=== PATIENT | female | born 1930 | race Caucasian/White ===

== ENCOUNTER 2017-11-07 21:48 | Inpatient (IN) | payer MEDICARE, OTHER ==
[~2017-11-07] VITALS: Ht 152.4 cm; Wt 59.4 kg
--- NOTE | 2017-11-07 22:04 | NUR ---
Dr. العراقي at bedside for MSE.
--- NOTE | 2017-11-07 22:26 | NUR ---
Xray at bedside.
--- NOTE | 2017-11-07 22:30 | NUR ---
Pt out of ER for CT.
[2017-11-07] MEDS ORDERED: MECL12.582 PO (22:33)
[2017-11-07] MEDS ORDERED: LOSA50TA21 PO (22:33)
[2017-11-07] MEDS ORDERED: CLOP75TA15 PO (22:33)
[2017-11-07] MEDS ORDERED: LANS30CA54 PO (22:33)
[2017-11-07] MEDS ORDERED: LEVO25TA9 PO (22:33)
[2017-11-07] MEDS ORDERED: CLIN150C16 PO (22:33)
[2017-11-07] MEDS ORDERED: MELO-107 PO (22:33)
[2017-11-07] MEDS ORDERED: PREG75CA PO (22:33)
[2017-11-07 22:38] LABS: CARBON DIOXIDE 30 mmol/L (21-32); CHLORIDE 104 mmol/L (98-107); CREATININE 1.1 mg/dL (0.6-1.3); GLUCOSE 111 mg/dL (74-106); POTASSIUM 4.7 mmol/L (3.5-5.1); UREA NITROGEN, BLOOD 16 mg/dL (7-18)
--- NOTE | 2017-11-07 22:43 | NUR ---
Pt back to ER from CT.
[2017-11-07 22:47] LABS: BASOPHILS # (AUTO) 0.1 K/uL (0.0-8.0); BASOPHILS % (AUTO) 0.7 % (0.0-2.0); EOSINOPHILS # (AUTO) 0.1 K/uL (0.0-0.7); EOSINOPHILS % (AUTO) 0.9 % (0.0-7.0); HEMATOCRIT 36.1 % (31.2-41.9); HEMOGLOBIN 12.3 g/dL (10.9-14.3); LYMPHOCYTES # (AUTO) 2.6 K/uL (20.0-40.0); LYMPHOCYTES % (AUTO) 34.2 % (20.5-51.5); MEAN CORPUSCULAR HEMOGLOBIN 30.6 uug (24.7-32.8); MEAN CORPUSCULAR HGB CONC 34 g/dL (32.3-35.6); MEAN CORPUSCULAR VOLUME 90.1 fL (75.5-95.3); MONOCYTES # (AUTO) 0.4 K/uL (2.0-10.0); MONOCYTES % (AUTO) 5.7 % (0.0-11.0); NEUTROPHILS # (AUTO) 4.5 K/uL (1.8-8.9); NEUTROPHILS % (AUTO) 58.5 % (38.5-71.5); PLATELET COUNT (AUTO) 231 K/uL (179-408); WHITE BLOOD COUNT (AUTO) 7.7 K/uL (3.8-11.8)
--- NOTE | 2017-11-07 23:54 | NUR ---
Dr. العراقي on panel call with Nicole Mancini NP.
[2017-11-08] VITALS (7 sets, daily range): BP systolic 99–166; BP diastolic 45–69
--- NOTE | 2017-11-08 00:20 | NUR ---
Passed report to Leydi MYERS Tele.
--- NOTE | 2017-11-08 01:15 | NUR ---
Received patient from ER via wheelchair. A/O x 3 but mostly Farsi speaking. Able to make needs known with little Bolivian. Ushered patient safely to bed. TELE monitor leads applied. Belongings list done. Head to toe assessment done. No signs of skin breakdown. Patient is able to ambulate with assistance. Safety initiated. Call light within reach. Enforced to use the call button when in need of assistance. Bed alarm on. Will continue to monitor.
[2017-11-08] MEDS ORDERED: HYDROCODONE/APAP 5-325MG TABLET PO PRN (01:30)
[2017-11-08] MEDS ORDERED: ZOLPIDEM 5 MG TABLET PO PRN (01:30)
[2017-11-08] MEDS ORDERED: ONDANSETRON 4 MG/2 ML VIAL IV PRN (01:30)
[2017-11-08] MEDS ORDERED: MAGNESIUM HYDROXIDE 30 ML LIQUID UDC PO PRN (01:30)
[2017-11-08] MEDS ORDERED: ENOXAPARIN SODIUM 40 MG/0.4 ML DISP.SYRIN SQ ONE (02:30)
[2017-11-08] MEDS: ACETAMINOPHEN 325 MG TABLET PO PRN ×2 (02:31→20:57)
[2017-11-08] MEDS: IV NS 1000 ML 1,000 ML IV PRN ×2 (02:32→18:37)
--- NOTE | 2017-11-08 04:00 | NUR ---
Refused blood draw. Wish for a later draw time. Informed animal husbandry worker. Will closely monitor.
--- NOTE | 2017-11-08 05:31 | NUR ---
Patient slept remainder of shift. No acute distress noted. Patient c/o headaches. Med given, stated relief. TELE SB with 11 beats of Vtach. IVF infusing on the right hand. OK urine output. Vital signs stable. Safety and comfort measures maintained t/o shift. All meds given as ordered. All needs met. Bed alarm on. Bed in low and locked position. Room is kept clutter free.
[2017-11-08] MEDS ORDERED: hydrALAZINE HCL 20 MG/1 ML VIAL IV PRN ×3 (06:00→08:00)
--- NOTE | 2017-11-08 06:15 | NUR ---
B/P is elevated. MD aware. New orders to execute. Will continue to monitor.
--- NOTE | 2017-11-08 06:54 | NUR ---
Latest BP is 136/62 HR 73 after Hydralazine given. Will closely monitor.
--- NOTE | 2017-11-08 08:00 | NUR ---
PATIENT NOTED TO HAVE ORTHOSTATIC BP, STILL C/O DIZZINESS ON AMBULATION. FALL PRECAUTION OBSERVED
[2017-11-08] MEDS ORDERED: MECLIZINE HCL 12.5 MG TABLET PO PRN (10:30)
[2017-11-08 11:26] LABS: BASOPHILS % (AUTO) 0.9 % (0.0-2.0); EOSINOPHILS % (AUTO) 0.6 % (0.0-7.0); HEMATOCRIT 39.9 % (31.2-41.9); HEMOGLOBIN 13.7 g/dL (10.9-14.3); LYMPHOCYTES # (AUTO) 1.7 K/uL (20.0-40.0); LYMPHOCYTES % (AUTO) 28.7 % (20.5-51.5); MEAN CORPUSCULAR HEMOGLOBIN 30.8 uug (24.7-32.8); MEAN CORPUSCULAR HGB CONC 34 g/dL (32.3-35.6); MONOCYTES # (AUTO) 0.3 K/uL (2.0-10.0); MONOCYTES % (AUTO) 5.8 % (0.0-11.0); NEUTROPHILS # (AUTO) 3.7 K/uL (1.8-8.9); PLATELET COUNT (AUTO) 237 K/uL (179-408); RED BLOOD CELL COUNT(AUTO) 4.43 MIL/uL (3.63-4.92); WHITE BLOOD COUNT (AUTO) 5.8 K/uL (3.8-11.8)
[2017-11-08 11:39] LABS: ALANINE AMINOTRANSFERASE 16 U/L (14-59); ALKALINE PHOSPHATASE 84 U/L (50-136); ASPARTATE AMINOTRANSFERASE 11 U/L (15-37); BILIRUBIN,TOTAL 0.3 mg/dL (0.2-1.0); CARBON DIOXIDE 29 mmol/L (21-32); CHLORIDE 106 mmol/L (98-107); CREATININE 0.9 mg/dL (0.6-1.3); GLUCOSE 108 mg/dL (74-106); MAGNESIUM 2.2 mg/dL (1.8-2.4); POTASSIUM 4.1 mmol/L (3.5-5.1); TOTAL PROTEIN, SERUM 6.6 g/dL (6.4-8.2); UREA NITROGEN, BLOOD 13 mg/dL (7-18)
[2017-11-08 11:50] LABS: THYROID STIMULATING HORMONE 3.519 mIU/mL (0.358-3.740)
--- NOTE | 2017-11-08 12:00 | NUR ---
SEEN BY DR LEVIN SEE NOTES. SR ON MONITOR. STARTED PHYSICAL THERAPY SEE NOTES
[2017-11-08] MEDS ORDERED: CLINDAMYCIN HCL 150 MG CAPSULE PO SCH (13:00)
[2017-11-08 15:56] LABS: *BILIRUBIN,URIN NEGATIVE (NEGATIVE); *BLOOD, URINE NEGATIVE (NEGATIVE); *COLOR,URINE YELLOW (YELLOW); *KETONES,URINE NEGATIVE (NEGATIVE); *PROTEIN,URINE NEGATIVE (NEGATIVE); *UROBILINOGEN,URINE 0.2 E.U./dl (NORMAL); LEUKOCYTE ESTERASE ,URINE NEGATIVE (NEGATIVE); NITRITE, URINE NEGATIVE (NEGATIVE); PH,URINE 7.5 (5.0-8.0); UGLUCOSE NEGATIVE (NEGATIVE)
[2017-11-08 16:58] LABS: *CLARITY,URINE HAZY (CLEAR)
[2017-11-08 17:00] LABS: BACTERIA,URINE FEW /HPF (NONE SEEN); MUCUS,URINE FEW /LPF (0-FEW); RBC,URINE 0-3 /HPF (0-3); SQUAMOUS EPITHELIAL CELL,UR MANY /HPF (NONE SEEN)
--- NOTE | 2017-11-08 18:01 | NUR ---
seen by dr johns changed patient status to med/surg. continue wot monitor dizzy status
[2017-11-08] MEDS ORDERED: ENOXAPARIN SODIUM 40 MG/0.4 ML DISP.SYRIN SQ SCH (21:00)
[2017-11-09 04:00] VITALS: BP 128/61
--- NOTE | 2017-11-09 05:41 | NUR ---
Patient pulled out her IV line and refused to have it reinserted after multiple attemps. Patient also refused to have labs drawn this morning. Will endorse to AM nurse to attempt.
[2017-11-09] MEDS ORDERED: LEVOTHYROXINE SODIUM 25 MCG TABLET PO SCH (07:00)
--- NOTE | 2017-11-09 07:30 | NUR ---
RECEIVED PATIENT ON BED AWAKE, A AND O X 3, NO ACUTE DISTRESS NOTED. FARSI SPEAKING BUT CAN UNDERSTAND SOME DOMINICAN ON FALL PRECAUTION DUE TO DIZZINESS AND HX OF FALLS. PER ABRAHAM MYERS PATIENT PULLED OUT IV AND REFUSED TO REINSERT. COMFORT MEASURES PROVIDED. CALL LIGHT WITHIN REACH. WILL CONTINUE TOP MONITOR CLOSELY.
[2017-11-09] MEDS: ACETAMINOPHEN 325 MG TABLET PO PRN (08:39)
[2017-11-09] MEDS ORDERED: ENOXAPARIN SODIUM 30 MG/0.3 ML DISP.SYRIN SUBCUT SCH (09:00)
[2017-11-09] MEDS ORDERED: CLOPIDOGREL 75 MG TABLET PO SCH (09:00)
--- NOTE | 2017-11-09 09:00 | NUR ---
REFUSED AM LABS AGAIN. WILLC ONTINUE TO MONITOR.
[2017-11-09 09:30] VITALS: BP 166/53
[2017-11-09 10:59] VITALS: BP 172/63
[2017-11-09] MEDS ORDERED: hydrALAZINE HCL 25 MG TABLET PO PRN (11:15)
[2017-11-09 11:33] VITALS: BP 131/62
[2017-11-09] MEDS ORDERED: MECL12.582 PO (13:31)
--- NOTE | 2017-11-09 14:30 | NUR ---
PATIENT DISCHARGED IN STABLE CONDITION LEFT HOSPITAL VIA TAXI. DISCHARGE PAPERS AND INSTRUCTIONS EXPLAINED AND GIVEN TO PATIENT. SHE REFUSED MED EDUCATION FROM PHARMACIST. BELONGINGS LIST COMPLETED AND SIGNED. ID BAND REMOVED.
== END 2017-11-09 14:30 | disposition home health service (06) | DRG 312 ==
LOC: ER 21:51 → TELE 11-08 00:20 → MED 11-08 15:55
PROVIDERS: ADMIT Nurse Practitioner Acute Care; ATTEND Nurse Practitioner Acute Care
DX: I95.1 Orthostatic hypotension (principal); I50.32 Chronic diastolic (congestive) heart failure; I47.1 Supraventricular tachycardia; I11.0 Hypertensive heart disease with heart failure; E78.5 Hyperlipidemia, unspecified; E03.9 Hypothyroidism, unspecified; M19.90 Unspecified osteoarthritis, unspecified site; I70.0 Atherosclerosis of aorta; I67.2 Cerebral atherosclerosis; Z79.02 Long term (current) use of antithrombotics/antiplatelets; Z79.899 Other long term (current) drug therapy; E88.09 Other disorders of plasma-protein metabolism, not elsewhere classified; R73.9 Hyperglycemia, unspecified
CPT/HCPCS: 36415; 70030-TC; 70450; 71045; 83735; 84100; 84443; 85025; 85730; 87086; 93005; 93307; A4663; J0360; J1650; J7030

== ENCOUNTER 2018-02-03 22:24 | Inpatient (IN) | payer MEDICARE, OTHER ==
[~2018-02-03] VITALS: Ht 152.4 cm; Wt 61.7 kg
[~2018-02-03 22:24] MED LIST: CLOP75TA15 PO; LANS30CA54 PO; LEVO25TA9 PO; LOSA50TA21 PO; MECL12.582 PO
--- NOTE | 2018-02-03 22:35 | NUR ---
Dr. garcia at bedside for MSE.
--- NOTE | 2018-02-03 22:43 | NUR ---
Xray at bedside.
[2018-02-03 23:13] LABS: BASOPHILS # (AUTO) 0.1 K/uL (0.0-8.0); BASOPHILS % (AUTO) 0.7 % (0.0-2.0); EOSINOPHILS # (AUTO) 0.1 K/uL (0.0-0.7); EOSINOPHILS % (AUTO) 0.7 % (0.0-7.0); HEMATOCRIT 38.4 % (31.2-41.9); HEMOGLOBIN 13.2 g/dL (10.9-14.3); LYMPHOCYTES # (AUTO) 2.4 K/uL (20.0-40.0); LYMPHOCYTES % (AUTO) 31.6 % (20.5-51.5); MEAN CORPUSCULAR HEMOGLOBIN 30.3 uug (24.7-32.8); MEAN CORPUSCULAR HGB CONC 34 g/dL (32.3-35.6); MEAN CORPUSCULAR VOLUME 88.3 fL (75.5-95.3); MONOCYTES # (AUTO) 0.4 K/uL (2.0-10.0); MONOCYTES % (AUTO) 5.1 % (0.0-11.0); NEUTROPHILS # (AUTO) 4.7 K/uL (1.8-8.9); NEUTROPHILS % (AUTO) 61.9 % (38.5-71.5); PLATELET COUNT (AUTO) 209 K/uL (179-408); RED BLOOD CELL COUNT(AUTO) 4.35 MIL/uL (3.63-4.92); WHITE BLOOD COUNT (AUTO) 7.6 K/uL (3.8-11.8)
--- NOTE | 2018-02-03 23:13 | NUR ---
Pt out of ER for CT.
[2018-02-03 23:16] LABS: CARBON DIOXIDE 27 mmol/L (21-32); CHLORIDE 106 mmol/L (98-107); CREATININE 1.1 mg/dL (0.6-1.3); GLUCOSE 108 mg/dL (74-106); POTASSIUM 3.7 mmol/L (3.5-5.1); UREA NITROGEN, BLOOD 15 mg/dL (7-18)
--- NOTE | 2018-02-03 23:25 | NUR ---
Pt back to ER from CT.
[2018-02-03 23:28] LABS: ALANINE AMINOTRANSFERASE 21 U/L (14-59); ALKALINE PHOSPHATASE 92 U/L (50-136); ASPARTATE AMINOTRANSFERASE 15 U/L (15-37); BILIRUBIN,DIRECT 0.1 mg/dL (0.0-0.2); BILIRUBIN,TOTAL 0.3 mg/dL (0.2-1.0); TOTAL PROTEIN, SERUM 7.3 g/dL (6.4-8.2)
[2018-02-04] VITALS (7 sets, daily range): BP systolic 122–184; BP diastolic 61–94
--- NOTE | 2018-02-04 00:10 | NUR ---
Dr. Pro on panel call with Dr. Hoyt.
--- NOTE | 2018-02-04 00:29 | NUR ---
Report given to Will health occupations teacher.
[2018-02-04] MEDS ORDERED: ONDANSETRON 4 MG/2 ML VIAL IV PRN (00:30)
[2018-02-04] MEDS ORDERED: Z GUARD REMEDY PASTE 57 GM TUBE TOP PRN (00:30)
[2018-02-04] MEDS ORDERED: MAGNESIUM HYDROXIDE 30 ML LIQUID UDC PO PRN (00:30)
[2018-02-04] MEDS ORDERED: HYDROCODONE/APAP 5-325MG TABLET PO PRN (00:30)
[2018-02-04] MEDS ORDERED: MECLIZINE HCL 12.5 MG TABLET PO PRN (00:30)
[2018-02-04] MEDS ORDERED: ACETAMINOPHEN ES 500 MG TABLET ONE (00:37)
[2018-02-04] MEDS ORDERED: ACETAMINOPHEN 325 MG TABLET PO ONE (00:45)
--- NOTE | 2018-02-04 01:00 | NUR ---
ADMITTED PATIENT IN TELE UNIT UNDER THE CARE OF DR. BLACK, BELONGING LIST DONE.
[2018-02-04] MEDS: hydrALAZINE HCL 25 MG TABLET PO SCH ×4 (01:12→16:54)
--- NOTE | 2018-02-04 01:12 | NUR ---
PATIENT WITH ELEVATED BP 188/78 DR BLACK WAS AWARE, GIVEN HYDRALAZINE 25MG PO ORDERED, PATIENT ALERT ORIENTED NO DIZZINESS, WITH MILD HEADACHES, TYLENOL GIVEN VIA ER NURSE, NO S/S OF DISTRESS, CONT TO MONITOR BP, TELE READING SINUS RHYTHM AT THIS TIME. CONT TO MONITOR. CHARGE NURSE AWARE.
--- NOTE | 2018-02-04 02:30 | NUR ---
RECHECK BP. BP TRENDING DOWN SLOWLY, NO COMPLAIN OF HEADACHES AT THIS TIME. BP 184/74, PATIENT HAS NO VOMITTING, NO DIZZINESS, ASYMPTOMATIC, CONT TO MONITOR. CALL LIGHT WITHIN REACH. RHYTHM NORMAL SINUS AT THIS TIME.
--- NOTE | 2018-02-04 04:00 | NUR ---
PATIENT ALERT ORIENTED, NO SOB NO CHEST PAIN NOTED, NORMAL SINUS RHYTHM AT THIS TIME. NO DIZZINESS, NO HEADACHES, RECHECK BP 156/ 64, HR 62, NO PAIN. ASSISTED WITH TOILETING, CALL LIGHT WITHIN REACH.
[2018-02-04] MEDS: LEVOTHYROXINE SODIUM 25 MCG TABLET PO SCH (06:00)
[2018-02-04] MEDS: ACETAMINOPHEN 325 MG TABLET PO PRN ×2 (06:00→13:31)
[2018-02-04 06:42] LABS: ALANINE AMINOTRANSFERASE 18 U/L (14-59); ALKALINE PHOSPHATASE 81 U/L (50-136); ASPARTATE AMINOTRANSFERASE 16 U/L (15-37); BILIRUBIN,TOTAL 0.5 mg/dL (0.2-1.0); CARBON DIOXIDE 26 mmol/L (21-32); CHLORIDE 107 mmol/L (98-107); CREATININE 0.9 mg/dL (0.6-1.3); GLUCOSE 99 mg/dL (74-106); PHOSPHOROUS 3.3 mg/dL (2.5-4.9); POTASSIUM 3.8 mmol/L (3.5-5.1); TOTAL PROTEIN, SERUM 6.4 g/dL (6.4-8.2); UREA NITROGEN, BLOOD 12 mg/dL (7-18)
--- NOTE | 2018-02-04 06:53 | NUR ---
PATIENT AWAKE ALERT, NO SOB NO CHEST PAIN, RHYTHM SINUS RHYTHM, COMPLAIN OF MILD HEADACHES MEDICATED WITH TYLENOL WITH HELP, BP TREND DOWN TO 122/62, HR 65, NO DIZZINESS, NO NAUSEA NO VOMITING NOTED, CONT TO MONITOR.
[2018-02-04 06:55] LABS: BASOPHILS % (AUTO) 0.6 % (0.0-2.0); EOSINOPHILS # (AUTO) 0.1 K/uL (0.0-0.7); EOSINOPHILS % (AUTO) 1.3 % (0.0-7.0); HEMATOCRIT 36.5 % (31.2-41.9); HEMOGLOBIN 12.3 g/dL (10.9-14.3); LYMPHOCYTES # (AUTO) 2.5 K/uL (20.0-40.0); LYMPHOCYTES % (AUTO) 35.2 % (20.5-51.5); MEAN CORPUSCULAR HEMOGLOBIN 30.3 uug (24.7-32.8); MEAN CORPUSCULAR HGB CONC 34 g/dL (32.3-35.6); MEAN CORPUSCULAR VOLUME 89.6 fL (75.5-95.3); MONOCYTES # (AUTO) 0.4 K/uL (2.0-10.0); MONOCYTES % (AUTO) 5.3 % (0.0-11.0); NEUTROPHILS % (AUTO) 57.6 % (38.5-71.5); PLATELET COUNT (AUTO) 187 K/uL (179-408); RED BLOOD CELL COUNT(AUTO) 4.07 MIL/uL (3.63-4.92)
[2018-02-04 07:38] LABS: THYROID STIMULATING HORMONE 5.676 mIU/mL (0.358-3.740)
--- NOTE | 2018-02-04 08:00 | NUR ---
AWAKE COOPERATE WELL NO SOB OR PAIN EAT BREAKFAST WELL PO FLD ENC NANETTE N MOD AMT ON FALL PRECAUTION CALL BRICENO IN REACH
[2018-02-04] MEDS: PANTOPRAZOLE SODIUM 40 MG TABLET.DR PO SCH (08:08)
[2018-02-04] MEDS: CLOPIDOGREL 75 MG TABLET PO SCH (08:09)
[2018-02-04] MEDS: LOSARTAN POTASSIUM 50 MG TABLET PO SCH (08:10)
[2018-02-04] MEDS ORDERED: Medication Not On Formulary EA (Lansoprazole (Prevacid) 30 MG) PO SCH (09:00)
--- NOTE | 2018-02-04 11:00 | NUR ---
Yoel MCKEON SEEN PATIENT AND LAB RESULT AND NEW ORDER IN CHART ORTHOSATIC BP CHECK AND RECORD ORDER
[2018-02-04] MEDS ORDERED: HYDROCHLOROTHIAZIDE 25 MG TABLET PO SCH (11:30)
[2018-02-04] MEDS: IV NS 1000 ML 1,000 ML IV PRN (14:24)
--- NOTE | 2018-02-04 16:30 | NUR ---
ASSIST OOB UP IN CHAIR DOING WELL NO H/A OR DIZZINESS AT THIS TIME
--- NOTE | 2018-02-04 17:00 | NUR ---
STABLE TELE SR 68 AND BP WAS IMPROVING KEEP MONITORING Q 4HR
--- NOTE | 2018-02-04 17:30 | NUR ---
STABLE HEMODYNAMIC STATUS NO ACUTE DISTRESS ,PAIN AND DIZZINESS UNDER CONTROL SAFETY MEASURE PROVIDED CALL LIGHT IN REACH
[2018-02-04 18:35] LABS: *BILIRUBIN,URIN NEGATIVE (NEGATIVE); *BLOOD, URINE NEGATIVE (NEGATIVE); *CLARITY,URINE CLEAR (CLEAR); *COLOR,URINE LIGHT YELLOW (YELLOW); *KETONES,URINE NEGATIVE (NEGATIVE); *PROTEIN,URINE NEGATIVE (NEGATIVE); *UROBILINOGEN,URINE 0.2 E.U./dl (NORMAL); LEUKOCYTE ESTERASE ,URINE 3+ (NEGATIVE); NITRITE, URINE NEGATIVE (NEGATIVE); UGLUCOSE NEGATIVE (NEGATIVE)
[2018-02-04 18:51] LABS: RBC,URINE 0-3 /HPF (0-3); SQUAMOUS EPITHELIAL CELL,UR FEW /HPF (NONE SEEN)
[2018-02-04 18:52] LABS: BACTERIA,URINE MANY /HPF (NONE SEEN)
--- NOTE | 2018-02-04 20:30 | NUR ---
Pt observed to be in bed, alert and oriented x 4 with family at bedside, in no acute distress. Patient and patient's family made aware of plan of care. BP noted to be elevated at 167/66. Addis BUSINESS MACHINES TEACHER made aware and received orders to administer Norvasc 2.5 mg PO now. Tele monitor sinus rhythm. Safe environment implemented. Call light within reach.
[2018-02-04] MEDS ORDERED: AMLODIPINE 2.5 MG TABLET PO ONE (21:00)
[2018-02-05 00:12] VITALS: BP 144/66
[2018-02-05] MEDS: IV NS 1000 ML 1,000 ML IV PRN (05:44)
[2018-02-05] MEDS: hydrALAZINE HCL 25 MG TABLET PO SCH ×3 (05:45→21:25)
[2018-02-05] MEDS: PANTOPRAZOLE SODIUM 40 MG TABLET.DR PO SCH (06:18)
[2018-02-05] MEDS: LEVOTHYROXINE SODIUM 25 MCG TABLET PO SCH (06:18)
[2018-02-05 06:19] VITALS: BP 176/50
[2018-02-05 06:55] VITALS: BP 144/67
--- NOTE | 2018-02-05 06:55 | NUR ---
Pt stable at this time. No s/s of acute distress noted. Safe environment implemented.
[2018-02-05 07:33] LABS: BASOPHILS % (AUTO) 0.8 % (0.0-2.0); EOSINOPHILS # (AUTO) 0.1 K/uL (0.0-0.7); EOSINOPHILS % (AUTO) 2.4 % (0.0-7.0); LYMPHOCYTES # (AUTO) 1.5 K/uL (20.0-40.0); LYMPHOCYTES % (AUTO) 26.7 % (20.5-51.5); MEAN CORPUSCULAR HEMOGLOBIN 30.3 uug (24.7-32.8); MEAN CORPUSCULAR HGB CONC 34 g/dL (32.3-35.6); MEAN CORPUSCULAR VOLUME 90.3 fL (75.5-95.3); MONOCYTES # (AUTO) 0.3 K/uL (2.0-10.0); MONOCYTES % (AUTO) 5.5 % (0.0-11.0); NEUTROPHILS # (AUTO) 3.7 K/uL (1.8-8.9); NEUTROPHILS % (AUTO) 64.6 % (38.5-71.5); PLATELET COUNT (AUTO) 184 K/uL (179-408); RED BLOOD CELL COUNT(AUTO) 4.47 MIL/uL (3.63-4.92); WHITE BLOOD COUNT (AUTO) 5.8 K/uL (3.8-11.8)
[2018-02-05 07:45] LABS: ALANINE AMINOTRANSFERASE 18 U/L (14-59); ALKALINE PHOSPHATASE 74 U/L (50-136); ASPARTATE AMINOTRANSFERASE 18 U/L (15-37); BILIRUBIN,TOTAL 0.5 mg/dL (0.2-1.0); CARBON DIOXIDE 27 mmol/L (21-32); CHLORIDE 106 mmol/L (98-107); CHOLESTEROL 203 mg/dL (<200); GLUCOSE 91 mg/dL (74-106); HDL CHOLESTEROL 67 mg/dL (40-60); PHOSPHOROUS 3.5 mg/dL (2.5-4.9); POTASSIUM 3.9 mmol/L (3.5-5.1); TOTAL PROTEIN, SERUM 6.4 g/dL (6.4-8.2); TRIGLYCERIDES 75 MG/DL (30-150); UREA NITROGEN, BLOOD 14 mg/dL (7-18)
[2018-02-05 07:48] LABS: HEMATOCRIT 40.4 % (31.2-41.9); HEMOGLOBIN 13.6 g/dL (10.9-14.3)
--- NOTE | 2018-02-05 08:00 | NUR ---
AWAKE ALERT COOPERATE WELL NO SOB OR H/A OR PAIN AT THIS TIME EAT BREAKFAST WELL STATE FEEL BETTER AND WANT TO GO HOME TODAY RESTING WELL WITH CALL BRICENO IN REACH
[2018-02-05] MEDS: CLOPIDOGREL 75 MG TABLET PO SCH (08:30)
[2018-02-05] MEDS: LOSARTAN POTASSIUM 50 MG TABLET PO SCH (08:31)
[2018-02-05] MEDS ORDERED: AMLODIPINE 2.5 MG TABLET PO SCH (09:00)
--- NOTE | 2018-02-05 10:00 | NUR ---
Odette SALAS MANAGER TRANSFUSION WAS INFORM OF UA RESULT AND NEW ORDER IN CHART
[2018-02-05] MEDS ORDERED: CEFTRIAXONE 1 G VIAL IM SCH (10:45)
[2018-02-05] MEDS ORDERED: FUROSEMIDE 40 MG/4 ML VIAL IV ONE (11:00)
[2018-02-05 11:23] VITALS: BP 115/67
[2018-02-05] MEDS: CEFTRIAXONE 1 G in IV DEXTROSE 5% 50 ML IV SCH (11:33)
[2018-02-05 15:03] VITALS: BP 118/64
--- NOTE | 2018-02-05 17:30 | NUR ---
STABLE CONDITION NO ACUTE DISTRESS ,PAIN UNDER CONTROL SAFETY MEASURE PROVIDED CALL LIGHT IN REACH
--- NOTE | 2018-02-05 18:00 | NUR ---
REFUSED TO RESTART IV AT THIS TIME ,WILL ASK MINT WAFER DEPOSITOR TO DO IT LATER .
--- NOTE | 2018-02-05 20:00 | NUR ---
ROUNDS MADE PATIENT IN BED AWAKE ,WATCHING TV.DENIES PAIN WHEN ASKED .NO RESPIRATORY DISTRESS ON ROOM AIR .ADVISED TO CALL FOR HELP CALL LIGHT PLACE WITH IN REACH .
[2018-02-05 20:17] VITALS: BP 123/65
--- NOTE | 2018-02-05 20:30 | NUR ---
ASSISTED PATIENT TO THE BATHROOM VOIDED ,ESCORTED BACK TO BED .
[2018-02-05] MEDS ORDERED: ATORVASTATIN 10 MG TABLET PO SCH (21:00)
--- NOTE | 2018-02-05 21:30 | NUR ---
DUE HS MEDIATION GIVEN TOLERATED WITH WATER . NO COMPLAINS MADE , NO S/S/ OF PAIN ,DISTRESS NOTED . PER DAY RN PATIENT REFUSED IVF -HEPLOCK REINSERTION FOR POSSIBLE D/C IN AM . .
--- NOTE | 2018-02-05 22:15 | NUR ---
ROUNDS MADE,PATIENT AWAKE. PER PATIENT SHE IS GOING HOME IN AM .
[2018-02-06 04:00] VITALS: BP 120/61
[2018-02-06] MEDS: hydrALAZINE HCL 25 MG TABLET PO SCH (05:48)
[2018-02-06] MEDS: LEVOTHYROXINE SODIUM 25 MCG TABLET PO SCH (06:06)
[2018-02-06] MEDS: PANTOPRAZOLE SODIUM 40 MG TABLET.DR PO SCH (06:07)
[2018-02-06 07:06] LABS: BASOPHILS % (AUTO) 0.5 % (0.0-2.0); CARBON DIOXIDE 28 mmol/L (21-32); CHLORIDE 104 mmol/L (98-107); CREATININE 1.1 mg/dL (0.6-1.3); EOSINOPHILS # (AUTO) 0.1 K/uL (0.0-0.7); EOSINOPHILS % (AUTO) 1.8 % (0.0-7.0); GLUCOSE 107 mg/dL (74-106); HEMATOCRIT 43.3 % (31.2-41.9); HEMOGLOBIN 14.6 g/dL (10.9-14.3); LYMPHOCYTES # (AUTO) 2.8 K/uL (20.0-40.0); LYMPHOCYTES % (AUTO) 34.6 % (20.5-51.5); MEAN CORPUSCULAR HEMOGLOBIN 30.4 uug (24.7-32.8); MEAN CORPUSCULAR HGB CONC 34 g/dL (32.3-35.6); MONOCYTES # (AUTO) 0.4 K/uL (2.0-10.0); MONOCYTES % (AUTO) 4.9 % (0.0-11.0); NEUTROPHILS # (AUTO) 4.6 K/uL (1.8-8.9); NEUTROPHILS % (AUTO) 58.2 % (38.5-71.5); PLATELET COUNT (AUTO) 222 K/uL (179-408); POTASSIUM 3.8 mmol/L (3.5-5.1); RED BLOOD CELL COUNT(AUTO) 4.81 MIL/uL (3.63-4.92); UREA NITROGEN, BLOOD 21 mg/dL (7-18)
--- NOTE | 2018-02-06 07:20 | NUR ---
RECEIVED PATIENT ON BED AWAKE AAOX4 FARSI SPEAKING, ABLE TO MAKE NEEDS KNOWN. NO ACUTE DISTRESS NOTED. PER SHAHANA RN PATIENT REFUSED TO RESTART IV SITE. VITAL SIGNS WNL. NO COMPLAINT OF PAIN/DISCOMFORT. COMFORT MEASURES PROVIDED. CALL LIGHT WITHIN REACH. WILL CONTINUE TO MONITOR CLOSELY.
[2018-02-06] MEDS: CLOPIDOGREL 75 MG TABLET PO SCH (08:03)
[2018-02-06] MEDS: LOSARTAN POTASSIUM 50 MG TABLET PO SCH (08:04)
[2018-02-06] MEDS ORDERED: ACETAMINOPHEN 325 MG TABLET PO PRN (08:30)
[2018-02-06] MEDS ORDERED: AMLODIPINE 2.5 MG TABLET PO SCH (09:00)
[2018-02-06] MEDS ORDERED: CEPH500C2 PO (10:56)
[2018-02-06] MEDS ORDERED: ATOR10TA PO (10:56)
[2018-02-06] MEDS ORDERED: AMLO5TAB4 PO (10:57)
[2018-02-06 11:05] VITALS: BP 106/87
[2018-02-06] MEDS: CEFTRIAXONE 1 G in IV DEXTROSE 5% 50 ML IV SCH (12:00)
--- NOTE | 2018-02-06 13:48 | NUR ---
PATIENT DISCHARGED IN STABLE CONDITION. DISCHARGE PAPERS AND INSTRUCTIONS GIVEN AND EXPLAINED TO PATIENT, TOGETHER WITH PRESCRIPTION, REFUSED MEDICATION EDUCATION FROM PHARMACIST. PATIENT LEFT HOSPITAL VIA TAXI SELF PAY.
== END 2018-02-06 13:40 | disposition home or self-care (01) | DRG 73 ==
LOC: ER 22:26 → TELE 02-04 00:42 → MED 02-05 13:00
PROVIDERS: ADMIT Internal Medicine; ATTEND Nurse Practitioner Acute Care
DX: G90.8 Other disorders of autonomic nervous system (principal); I50.33 Acute on chronic diastolic (congestive) heart failure; N39.0 Urinary tract infection, site not specified; I16.0 Hypertensive urgency; I67.2 Cerebral atherosclerosis; E03.9 Hypothyroidism, unspecified; E78.5 Hyperlipidemia, unspecified; R73.9 Hyperglycemia, unspecified; M19.90 Unspecified osteoarthritis, unspecified site; E88.09 Other disorders of plasma-protein metabolism, not elsewhere classified; I11.0 Hypertensive heart disease with heart failure
CPT/HCPCS: 36415; 70030-TC; 70450; 71045; 83735; 84100; 84443; 85025; 85730; 93005; 97116; 97530; A4663; A9150; J0696; J1940; J7030; J7060; J8597

== ENCOUNTER 2018-09-28 05:51 | Inpatient (IN) | payer MEDICARE, OTHER ==
[~2018-09-28] VITALS: Ht 152.4 cm; Wt 54.4 kg
[~2018-09-28 05:51] MED LIST changes: +AMLO5TAB4 PO; +ATOR10TA PO; +CEPH500C2 PO; -LOSA50TA21 PO; +LOSA50TA39 PO
[2018-09-28] MEDS ORDERED: ONDANSETRON 4 MG/2 ML VIAL IV ONE (06:00)
[2018-09-28] MEDS ORDERED: IV NORMAL SALINE 500 ML BAG IV ONE (06:00)
[2018-09-28] MEDS ORDERED: ONDANSETRON 4 MG/2 ML VIAL ONE ×2 (06:07→07:39)
--- NOTE | 2018-09-28 06:10 | NUR ---
PATIENT BIB [facility] FROM HOME FOR C/O LEFT HIP PAIN,LEFT SHOULDER PAIN DUE TO MECHANICAL FALL. PATIENT UPON ARRIVAL A/OX3 . HAS BRUISE ON LEFT EYE. PLACED IN ROOM 3A. DENIES LOC
[2018-09-28] MEDS ORDERED: CELE50CA PO (06:11)
[2018-09-28] MEDS ORDERED: VITAMIN D (06:11)
[2018-09-28] MEDS ORDERED: [UNRECOGNIZED DRUG - OTHER] (06:11)
[2018-09-28] MEDS ORDERED: MULTI VITAMINS (06:11)
--- NOTE | 2018-09-28 06:11 | NUR ---
PATIENT DRY HEAVING C/O DIZZINESS. DR NICOLAS AWARE.
[2018-09-28] MEDS ORDERED: MORPHINE SULFATE 4 MG/1 ML DISP.SYRIN IV ONE (06:15)
[2018-09-28] MEDS ORDERED: ONDANSETRON IV *ER 4 MG/2 ML VIAL IV ONE (06:15)
[2018-09-28 06:25] LABS: BASOPHILS % (AUTO) 0.2 % (0.0-2.0); EOSINOPHILS % (AUTO) 0.1 % (0.0-7.0); HEMATOCRIT 38.3 % (31.2-41.9); HEMOGLOBIN 12.7 g/dL (10.9-14.3); LYMPHOCYTES # (AUTO) 2.2 K/uL (20.0-40.0); LYMPHOCYTES % (AUTO) 15.6 % (20.5-51.5); MEAN CORPUSCULAR HEMOGLOBIN 28.5 uug (24.7-32.8); MEAN CORPUSCULAR HGB CONC 33 g/dL (32.3-35.6); MEAN CORPUSCULAR VOLUME 85.7 fL (75.5-95.3); MONOCYTES # (AUTO) 0.6 K/uL (2.0-10.0); NEUTROPHILS # (AUTO) 11.3 K/uL (1.8-8.9); NEUTROPHILS % (AUTO) 80.1 % (38.5-71.5); PLATELET COUNT (AUTO) 289 K/uL (179-408); RED BLOOD CELL COUNT(AUTO) 4.47 MIL/uL (3.63-4.92); WHITE BLOOD COUNT (AUTO) 14.1 K/uL (3.8-11.8)
[2018-09-28] MEDS ORDERED: MORPHINE SULFATE 4 MG/1 ML DISP.SYRIN ONE (06:27)
--- NOTE | 2018-09-28 06:29 | NUR ---
PATIENT OUT OF UNIT FOR CT SCAN VIA GURNY
[2018-09-28 06:49] LABS: CARBON DIOXIDE 27 mmol/L (21-32); CHLORIDE 101 mmol/L (98-107); GLUCOSE 133 mg/dL (74-106); POTASSIUM 3.7 mmol/L (3.5-5.1); UREA NITROGEN, BLOOD 13 mg/dL (7-18)
[2018-09-28 07:03] LABS: ALANINE AMINOTRANSFERASE 19 U/L (14-59); ALKALINE PHOSPHATASE 112 U/L (50-136); ASPARTATE AMINOTRANSFERASE 17 U/L (15-37); BILIRUBIN,DIRECT 0.1 mg/dL (0.0-0.2); BILIRUBIN,TOTAL 0.4 mg/dL (0.2-1.0); TOTAL PROTEIN, SERUM 7.3 g/dL (6.4-8.2)
--- NOTE | 2018-09-28 07:47 | NUR ---
PT REFUSED THE [facility]OLLEY CATH. PT RATHER WALK TO BATH ROOM FOR URINE SAMPLE, WHEN PT IS READY TO URIANRE. PT SON AT [facility]. PT ALERT, AT HER BASE LINE PER PT SON.
--- NOTE | 2018-09-28 07:59 | NUR ---
PT UNABLE TO AMBULATE TO BATHROM DUE TO DIZZINESS.PT AND PT SON REQUESTING THAT THE PT TO BE ADMITTED TO HOSPITAL. NOTIFIED. PT AGREED TO IN AND OUT RADHA MANNING.
[2018-09-28 08:25] LABS: *BILIRUBIN,URIN NEGATIVE (NEGATIVE); *CLARITY,URINE SLIGHTLY CLOUDY (CLEAR); *COLOR,URINE YELLOW (YELLOW); *KETONES,URINE TRACE (NEGATIVE); *UROBILINOGEN,URINE 0.2 E.U./dl (NORMAL); LEUKOCYTE ESTERASE ,URINE TRACE (NEGATIVE); NITRITE, URINE POSITIVE (NEGATIVE); UGLUCOSE NEGATIVE (NEGATIVE)
[2018-09-28 08:28] LABS: *BLOOD, URINE TRACE INTACT (NEGATIVE)
[2018-09-28 08:31] LABS: BACTERIA,URINE MANY /HPF (NONE SEEN); SQUAMOUS EPITHELIAL CELL,UR NONE SEEN /HPF (NONE SEEN)
[2018-09-28 08:32] LABS: RBC,URINE 0-3 /HPF (0-3)
[2018-09-28] MEDS ORDERED: CEFTRIAXONE 1 G VIAL ONE (08:42)
[2018-09-28] MEDS ORDERED: METOCLOPRAMIDE HCL 10 MG/2 ML VIAL ONE (08:42)
[2018-09-28] MEDS ORDERED: METOCLOPRAMIDE HCL 10 MG/2 ML VIAL IV ONE (08:45)
[2018-09-28] MEDS ORDERED: CEFTRIAXONE 1 G in IV DEXTROSE 5% 50 ML IV ONE (08:45)
--- NOTE | 2018-09-28 09:33 | NUR ---
PT TRANSFERED TO FLOOR IN STABLE CONDITION.
--- NOTE | 2018-09-28 09:50 | NUR ---
received from ER awake alert and oriented, speaks Farsi, very little Tajik, routine admission care rendered, initial assessment done, has a bruise on the left periorbital area, safety measures maintained, call light within reach with be alarm on.
[2018-09-28 09:55] VITALS: BP 143/56
[2018-09-28] MEDS ORDERED: Z GUARD REMEDY PASTE 57 GM TUBE TOP PRN (10:00)
[2018-09-28] MEDS ORDERED: ZOLPIDEM 5 MG TABLET PO PRN (10:00)
[2018-09-28] MEDS ORDERED: MAGNESIUM HYDROXIDE 30 ML LIQUID UDC PO PRN (10:00)
[2018-09-28] MEDS ORDERED: ONDANSETRON 4 MG/2 ML VIAL IV PRN (10:00)
[2018-09-28 11:43] VITALS: BP 133/52
--- NOTE | 2018-09-28 12:15 | NUR ---
seen by Dr Mejía
[2018-09-28] MEDS: ACETAMINOPHEN 325 MG TABLET PO PRN (12:27)
--- NOTE | 2018-09-28 12:31 | NUR ---
medicated with Tylenol 650mg po for c/o headache, rima jessie served, moved to rm [id number] per pt's request
[2018-09-28 16:00] VITALS: BP 129/62
[2018-09-28] MEDS: HYDROCODONE/APAP 5-325MG TABLET PO PRN ×2 (16:06→20:26)
--- NOTE | 2018-09-28 16:06 | NUR ---
states headache better but came back- medicated with norco 1 tab po, will monitor closely, oriented x 3, up with assist to commode- voded qs, assited back to bed
--- NOTE | 2018-09-28 16:30 | NUR ---
son Moises here visiting
--- NOTE | 2018-09-28 17:57 | NUR ---
resting in bed with son at bedside, states headache better, call light within reach, all needs attended and met
[2018-09-28 19:42] VITALS: BP 128/53
[2018-09-28] MEDS: ATORVASTATIN 10 MG TABLET PO SCH (20:24)
[2018-09-29] MEDS: HYDROCODONE/APAP 5-325MG TABLET PO PRN ×3 (01:52→22:03)
[2018-09-29 04:35] VITALS: BP 129/54
[2018-09-29] MEDS: LEVOTHYROXINE SODIUM 25 MCG TABLET PO SCH (06:11)
[2018-09-29 06:25] LABS: THYROID STIMULATING HORMONE 8.697 mIU/mL (0.358-3.740)
[2018-09-29 06:27] LABS: BASOPHILS % (AUTO) 0.4 % (0.0-2.0); EOSINOPHILS # (AUTO) 0.1 K/uL (0.0-0.7); HEMATOCRIT 34.4 % (31.2-41.9); HEMOGLOBIN 11.6 g/dL (10.9-14.3); LYMPHOCYTES # (AUTO) 1.6 K/uL (20.0-40.0); LYMPHOCYTES % (AUTO) 23.8 % (20.5-51.5); MEAN CORPUSCULAR HEMOGLOBIN 29.5 uug (24.7-32.8); MEAN CORPUSCULAR HGB CONC 34 g/dL (32.3-35.6); MEAN CORPUSCULAR VOLUME 87.5 fL (75.5-95.3); MONOCYTES # (AUTO) 0.4 K/uL (2.0-10.0); NEUTROPHILS # (AUTO) 4.6 K/uL (1.8-8.9); NEUTROPHILS % (AUTO) 68.8 % (38.5-71.5); PLATELET COUNT (AUTO) 228 K/uL (179-408); RED BLOOD CELL COUNT(AUTO) 3.93 MIL/uL (3.63-4.92); WHITE BLOOD COUNT (AUTO) 6.7 K/uL (3.8-11.8)
[2018-09-29 06:37] LABS: CARBON DIOXIDE 28 mmol/L (21-32); CHLORIDE 104 mmol/L (98-107); CREATININE 0.8 mg/dL (0.6-1.3); MAGNESIUM 2.2 mg/dL (1.8-2.4); PHOSPHOROUS 3.5 mg/dL (2.5-4.9); POTASSIUM 4.6 mmol/L (3.5-5.1); UREA NITROGEN, BLOOD 15 mg/dL (7-18)
--- NOTE | 2018-09-29 06:41 | NUR ---
Patient rested well in between care; c/o pain head and left side medicated accordingly; ice applied; assisted to BSC; needs attended; safety maintained.
[2018-09-29 06:44] LABS: GLUCOSE 97 mg/dL (74-106)
[2018-09-29] MEDS: AMLODIPINE 5 MG TABLET PO SCH (08:01)
[2018-09-29] MEDS: CEFTRIAXONE 1 G in IV DEXTROSE 5% 50 ML IV SCH (08:19)
[2018-09-29] MEDS ORDERED: AMLODIPINE 5 MG TABLET PO SCH (09:00)
[2018-09-29] MEDS ORDERED: CELECOXIB 50 MG PO SCH (09:00)
[2018-09-29 11:01] VITALS: BP 115/51
[2018-09-29 15:18] VITALS: BP 110/75
[2018-09-29 19:00] VITALS: BP 155/64
--- NOTE | 2018-09-29 19:20 | NUR ---
RECEIVED PT AWAKE , ALERT AND ORIENTEDX3. PT SHOWS NO SIGNS OF ACUTE DISTRESS. PT IV INTACT. SAFETY AND COMFORT PROVIDED. WILL CONTINUE TO MONITOR.
[2018-09-29] MEDS: ATORVASTATIN 10 MG TABLET PO SCH (20:22)
--- NOTE | 2018-09-29 20:30 | NUR ---
HANDS OFF REPORT TO HALIMA MYERS. PT SHOWS NO SIGNS FO ACUTE DISTRESS. PT STABLE. SAFETY AND COMFORT PROVIDED.
--- NOTE | 2018-09-29 21:00 | NUR ---
Received patient awake, alert and oriented in bed. No signs of acute distress. No SOB. IV intact and patent. Bruise on left eye noted. Fall precautions in place. Bed alarm on. Safety and comfort measures implemented. Will continue to monitor throughout shift.
[2018-09-29 23:40] VITALS: BP 150/56
[2018-09-30 05:17] VITALS: BP 146/71
--- NOTE | 2018-09-30 06:07 | NUR ---
Patient slept throughout the night. Complained of left arm and left hip pain. PRN [place] administered. Patient verbalized pain relief. Comfort provided at all times. Safety maintained and effective. All needs met. Continue plan of care.
[2018-09-30 07:07] LABS: BASOPHILS % (AUTO) 0.5 % (0.0-2.0); EOSINOPHILS # (AUTO) 0.1 K/uL (0.0-0.7); EOSINOPHILS % (AUTO) 1.8 % (0.0-7.0); HEMOGLOBIN 11.3 g/dL (10.9-14.3); LYMPHOCYTES # (AUTO) 1.8 K/uL (20.0-40.0); LYMPHOCYTES % (AUTO) 27.4 % (20.5-51.5); MEAN CORPUSCULAR HEMOGLOBIN 28.7 uug (24.7-32.8); MEAN CORPUSCULAR HGB CONC 33 g/dL (32.3-35.6); MEAN CORPUSCULAR VOLUME 86.2 fL (75.5-95.3); MONOCYTES # (AUTO) 0.4 K/uL (2.0-10.0); MONOCYTES % (AUTO) 6.6 % (0.0-11.0); NEUTROPHILS # (AUTO) 4.3 K/uL (1.8-8.9); NEUTROPHILS % (AUTO) 63.7 % (38.5-71.5); PLATELET COUNT (AUTO) 223 K/uL (179-408); RED BLOOD CELL COUNT(AUTO) 3.94 MIL/uL (3.63-4.92); WHITE BLOOD COUNT (AUTO) 6.7 K/uL (3.8-11.8)
[2018-09-30 07:25] LABS: CARBON DIOXIDE 30 mmol/L (21-32); CHLORIDE 104 mmol/L (98-107); CREATININE 0.8 mg/dL (0.6-1.3); GLUCOSE 96 mg/dL (74-106); MAGNESIUM 2.2 mg/dL (1.8-2.4); PHOSPHOROUS 3.3 mg/dL (2.5-4.9); POTASSIUM 4.1 mmol/L (3.5-5.1); UREA NITROGEN, BLOOD 17 mg/dL (7-18)
[2018-09-30] MEDS: LEVOTHYROXINE SODIUM 25 MCG TABLET PO SCH (07:25)
[2018-09-30] MEDS: CEFTRIAXONE 1 G in IV DEXTROSE 5% 50 ML IV SCH (07:30)
[2018-09-30] MEDS: AMLODIPINE 5 MG TABLET PO SCH (08:02)
[2018-09-30] MEDS: ACETAMINOPHEN 325 MG TABLET PO PRN ×2 (10:09→19:50)
[2018-09-30 11:56] VITALS: BP 148/67
[2018-09-30] MEDS: HYDROCODONE/APAP 5-325MG TABLET PO PRN (15:24)
[2018-09-30 16:00] VITALS: BP 149/69
--- NOTE | 2018-09-30 19:20 | NUR ---
RECEIVED PT AWAKE, ALERT AND ORIENTEDX3. PT SHOWS NO SIGNS OF ACUTE DISTRESS. PT IV INTACT. SIDERAILS UP AND BED ALARM ON. SAFETY AND COMFORT PROVIDED. WILL CONTINUE TO MONITOR.
[2018-09-30] MEDS: CEphaleXIN 500 MG CAPSULE PO SCH (20:00)
[2018-09-30] MEDS: ATORVASTATIN 10 MG TABLET PO SCH (20:00)
[2018-09-30 20:39] VITALS: BP 140/81
[2018-10-01] MEDS: LEVOTHYROXINE SODIUM 25 MCG TABLET PO SCH (06:01)
--- NOTE | 2018-10-01 06:13 | NUR ---
PT SLEPT THROUGHOUT THE SHIFT. PT SHOWS NO SIGNS OF ACUTE DISTRESS. PRESCRIBED MEDICATION GIVEN AND PT TOLERATED IT WELL. IV INTACT. FALL PRECAUTION OBSERVED. WILL ENDORSE ACCORDINGLY TO INCOMING NURSE FOR CONTINUITY OF CARE.
[2018-10-01 06:32] VITALS: BP 178/78
[2018-10-01 06:34] LABS: BASOPHILS % (AUTO) 0.5 % (0.0-2.0); EOSINOPHILS # (AUTO) 0.1 K/uL (0.0-0.7); EOSINOPHILS % (AUTO) 1.9 % (0.0-7.0); HEMATOCRIT 37.1 % (31.2-41.9); HEMOGLOBIN 12.2 g/dL (10.9-14.3); LYMPHOCYTES # (AUTO) 0.7 K/uL (20.0-40.0); LYMPHOCYTES % (AUTO) 13.1 % (20.5-51.5); MEAN CORPUSCULAR HEMOGLOBIN 28.3 uug (24.7-32.8); MEAN CORPUSCULAR HGB CONC 33 g/dL (32.3-35.6); MEAN CORPUSCULAR VOLUME 86.4 fL (75.5-95.3); MONOCYTES # (AUTO) 0.2 K/uL (2.0-10.0); MONOCYTES % (AUTO) 3.4 % (0.0-11.0); NEUTROPHILS # (AUTO) 4.3 K/uL (1.8-8.9); NEUTROPHILS % (AUTO) 81.1 % (38.5-71.5); PLATELET COUNT (AUTO) 204 K/uL (179-408); RED BLOOD CELL COUNT(AUTO) 4.29 MIL/uL (3.63-4.92); WHITE BLOOD COUNT (AUTO) 5.3 K/uL (3.8-11.8)
[2018-10-01 06:51] LABS: CARBON DIOXIDE 31 mmol/L (21-32); CHLORIDE 103 mmol/L (98-107); CREATININE 0.9 mg/dL (0.6-1.3); GLUCOSE 102 mg/dL (74-106); MAGNESIUM 2.1 mg/dL (1.8-2.4); PHOSPHOROUS 3.2 mg/dL (2.5-4.9); UREA NITROGEN, BLOOD 14 mg/dL (7-18)
[2018-10-01] MEDS: CEphaleXIN 500 MG CAPSULE PO SCH ×2 (08:02→20:10)
[2018-10-01] MEDS: AMLODIPINE 5 MG TABLET PO SCH (08:03)
[2018-10-01 11:48] VITALS: BP 153/66
[2018-10-01] MEDS: ACETAMINOPHEN 325 MG TABLET PO PRN (11:53)
[2018-10-01 15:35] VITALS: BP 144/73
[2018-10-01 19:23] VITALS: BP 140/58
[2018-10-01] MEDS: HYDROCODONE/APAP 5-325MG TABLET PO PRN ×2 (19:38→23:03)
[2018-10-01] MEDS: ATORVASTATIN 10 MG TABLET PO SCH (20:10)
[2018-10-02 03:10] VITALS: BP 147/62
[2018-10-02] MEDS: LEVOTHYROXINE SODIUM 25 MCG TABLET PO SCH (06:11)
[2018-10-02] MEDS: HYDROCODONE/APAP 5-325MG TABLET PO PRN ×3 (06:11→21:20)
--- NOTE | 2018-10-02 06:24 | NUR ---
Patient slept throughout the night. AAOx4. Complained of left shoulder/arm/hip pain of 10/10. PRN [place] administered as needed. No acute distress at this time. No SOB. Comfort provided at all times. Fall risk, safety maintained and effective. All needs met. Call light within reach. Continue plan of care.
[2018-10-02 07:10] LABS: BASOPHILS % (AUTO) 0.8 % (0.0-2.0); EOSINOPHILS # (AUTO) 0.1 K/uL (0.0-0.7); EOSINOPHILS % (AUTO) 3.4 % (0.0-7.0); HEMATOCRIT 34.4 % (31.2-41.9); HEMOGLOBIN 11.5 g/dL (10.9-14.3); LYMPHOCYTES # (AUTO) 0.8 K/uL (20.0-40.0); LYMPHOCYTES % (AUTO) 19.7 % (20.5-51.5); MEAN CORPUSCULAR HEMOGLOBIN 28.6 uug (24.7-32.8); MEAN CORPUSCULAR HGB CONC 33 g/dL (32.3-35.6); MEAN CORPUSCULAR VOLUME 85.7 fL (75.5-95.3); MONOCYTES # (AUTO) 0.3 K/uL (2.0-10.0); MONOCYTES % (AUTO) 7.8 % (0.0-11.0); NEUTROPHILS # (AUTO) 2.8 K/uL (1.8-8.9); NEUTROPHILS % (AUTO) 68.3 % (38.5-71.5); PLATELET COUNT (AUTO) 198 K/uL (179-408); RED BLOOD CELL COUNT(AUTO) 4.02 MIL/uL (3.63-4.92); WHITE BLOOD COUNT (AUTO) 4.1 K/uL (3.8-11.8)
[2018-10-02 08:00] VITALS: BP 137/76
[2018-10-02 08:13] LABS: ALANINE AMINOTRANSFERASE 28 U/L (14-59); ALKALINE PHOSPHATASE 99 U/L (50-136); ASPARTATE AMINOTRANSFERASE 20 U/L (15-37); BILIRUBIN,TOTAL 0.3 mg/dL (0.2-1.0); CARBON DIOXIDE 29 mmol/L (21-32); CHLORIDE 105 mmol/L (98-107); CHOLESTEROL 151 mg/dL (<200); CREATININE 0.8 mg/dL (0.6-1.3); GLUCOSE 97 mg/dL (74-106); HDL CHOLESTEROL 48 mg/dL (40-60); MAGNESIUM 2.1 mg/dL (1.8-2.4); PHOSPHOROUS 3.7 mg/dL (2.5-4.9); POTASSIUM 4.2 mmol/L (3.5-5.1); TOTAL PROTEIN, SERUM 6.3 g/dL (6.4-8.2); TRIGLYCERIDES 85 MG/DL (30-150); UREA NITROGEN, BLOOD 13 mg/dL (7-18)
[2018-10-02] MEDS: CEphaleXIN 500 MG CAPSULE PO SCH ×2 (09:18→21:19)
[2018-10-02] MEDS: AMLODIPINE 5 MG TABLET PO SCH (09:18)
[2018-10-02 11:40] VITALS: BP 126/62
[2018-10-02 16:00] VITALS: BP 137/63
--- NOTE | 2018-10-02 17:07 | NUR ---
Medicated for c/o pain on L shoulder and L lower back with norco. Pt asleep at this time. L eye bruise noted. Out of bed with walker. Poor appetite. Bed low and locked. call light within reached. will continue to monitor.
[2018-10-02] MEDS: ACETAMINOPHEN 325 MG TABLET PO PRN (18:12)
[2018-10-02 19:10] VITALS: BP 146/62
[2018-10-03 03:11] VITALS: BP 146/59
--- NOTE | 2018-10-03 05:54 | NUR ---
Patient slept throughout the night. Verbalized pain in left hip, shoulder and back at bedtime. PRN [place] administered as needed. Safety and comfort maintained at all times. All needs met. Call light within reach.
[2018-10-03] MEDS: LEVOTHYROXINE SODIUM 25 MCG TABLET PO SCH (06:24)
[2018-10-03] MEDS: HYDROCODONE/APAP 5-325MG TABLET PO PRN (06:25)
--- NOTE | 2018-10-03 07:41 | NUR ---
patient sleeping in bed, no acute distress noted
[2018-10-03 08:27] VITALS: BP 153/64
[2018-10-03] MEDS: AMLODIPINE 5 MG TABLET PO SCH (08:27)
[2018-10-03] MEDS: CEphaleXIN 500 MG CAPSULE PO SCH (08:28)
[2018-10-03] MEDS: ACETAMINOPHEN 325 MG TABLET PO PRN (08:35)
--- NOTE | 2018-10-03 11:02 | NUR ---
PATIENT IS ALERT, ORIENTED X4, VERBALLY RESPONSIVE, NO SOB, RESP EVEN NONLABORED,SKIN WARM AND DRY TO TOUCH, NO ACUTE DISTRESS NOTED AT THIS TIME, PATIENT IS BEING DISCHARGED HOME WITH [facility] NAME [facility]. BELONGINGS ACCENTED AND SIGNED. IV AND ID BAND REMOVED, SON STATED THAT HE UNDERSTANDS HER MEDS, HE REFUSED TO TALK TO -PHARMACIST. DISCHARGE INSTRUCTIONS PROVIDED AND SON VERBALIZED UNDERSTANDING OF IT.
== END 2018-10-03 11:50 | disposition home health service (06) | DRG 690 ==
LOC: ER 05:56 → TELE3 09:21 → MEDSURG3 10:00
PROVIDERS: ADMIT Student in an Organized Health Care Education/Training Program; ATTEND Student in an Organized Health Care Education/Training Program
DX: N39.0 Urinary tract infection, site not specified (principal); E44.1 Mild protein-calorie malnutrition; I47.1 Supraventricular tachycardia; D68.59 Other primary thrombophilia; I50.30 Unspecified diastolic (congestive) heart failure; E03.9 Hypothyroidism, unspecified; E78.5 Hyperlipidemia, unspecified; I25.10 Atherosclerotic heart disease of native coronary artery without angina pectoris; W18.30XA Fall on same level, unspecified, initial encounter; Z68.23 Body mass index [BMI] 23.0-23.9, adult; M19.012 Primary osteoarthritis, left shoulder; R91.1 Solitary pulmonary nodule; S00.83XA Contusion of other part of head, initial encounter; S70.02XA Contusion of left hip, initial encounter; W01.0XXA Fall on same level from slipping, tripping and stumbling without subsequent striking against object, initial encounter; Y93.89 Activity, other specified; Y92.013 Bedroom of single-family (private) house as the place of occurrence of the external cause; Z79.890 Hormone replacement therapy; M85.80 Other specified disorders of bone density and structure, unspecified site; I70.0 Atherosclerosis of aorta; Z79.02 Long term (current) use of antithrombotics/antiplatelets; B96.20 Unspecified Escherichia coli [E. coli] as the cause of diseases classified elsewhere; Z74.09 Other reduced mobility; I11.0 Hypertensive heart disease with heart failure
CPT/HCPCS: 36415; 70030-TC; 70450; 71045; 72125; 72170; 73030; 73502; 83735; 84100; 84443; 85025; 85730; 87077; 87086; 93005; 93307; 93880; 97116; 97530; A4663; C1758; G0378; J0696; J2270; J2405; J2765; J3490; J7040; J7060

== ENCOUNTER 2018-10-25 12:48 | Inpatient (IN) | payer MEDICARE, OTHER ==
[~2018-10-25] VITALS: Ht 157.5 cm; Wt 69.4 kg
[~2018-10-25 12:48] MED LIST changes: -ATOR10TA PO; +CELE50CA PO; -CEPH500C2 PO; -CLOP75TA15 PO; -LANS30CA54 PO; -LOSA50TA39 PO; -MECL12.582 PO; +MULTI VITAMINS; +VITAMIN D; +[UNRECOGNIZED DRUG - OTHER]
[2018-10-25] MEDS ORDERED: MAGNESIUM HYDROXIDE 30 ML LIQUID UDC PO PRN (14:15)
[2018-10-25] MEDS ORDERED: MEMA10TA PO (14:17)
[2018-10-25] MEDS ORDERED: DICL1KIT14 TP (14:17)
[2018-10-25] MEDS ORDERED: CELECOXIB 100 MG CAPSULE PO SCH (15:45)
[2018-10-25] MEDS ORDERED: HYDROCODONE/APAP 5-325MG TABLET PO PRN (15:45)
[2018-10-25 16:39] LABS: BASOPHILS # (AUTO) 0.1 K/uL (0.0-8.0); BASOPHILS % (AUTO) 1.1 % (0.0-2.0); EOSINOPHILS # (AUTO) 0.1 K/uL (0.0-0.7); EOSINOPHILS % (AUTO) 1.4 % (0.0-7.0); HEMATOCRIT 35.1 % (31.2-41.9); HEMOGLOBIN 11.5 g/dL (10.9-14.3); LYMPHOCYTES # (AUTO) 1.9 K/uL (20.0-40.0); LYMPHOCYTES % (AUTO) 30.6 % (20.5-51.5); MEAN CORPUSCULAR HEMOGLOBIN 28.2 uug (24.7-32.8); MEAN CORPUSCULAR HGB CONC 33 g/dL (32.3-35.6); MEAN CORPUSCULAR VOLUME 85.8 fL (75.5-95.3); MONOCYTES # (AUTO) 0.5 K/uL (2.0-10.0); MONOCYTES % (AUTO) 7.3 % (0.0-11.0); NEUTROPHILS # (AUTO) 3.8 K/uL (1.8-8.9); NEUTROPHILS % (AUTO) 59.6 % (38.5-71.5); PLATELET COUNT (AUTO) 236 K/uL (179-408); RED BLOOD CELL COUNT(AUTO) 4.09 MIL/uL (3.63-4.92); WHITE BLOOD COUNT (AUTO) 6.3 K/uL (3.8-11.8)
[2018-10-25 16:49] VITALS: BP 132/56
[2018-10-25 16:50] LABS: CARBON DIOXIDE 31 mmol/L (21-32); CHLORIDE 105 mmol/L (98-107); CREATININE 1.1 mg/dL (0.6-1.3); GLUCOSE 102 mg/dL (74-106); MAGNESIUM 2.2 mg/dL (1.8-2.4); POTASSIUM 4.7 mmol/L (3.5-5.1); UREA NITROGEN, BLOOD 20 mg/dL (7-18)
[2018-10-25] MEDS: MEMANTINE HCL 10 MG TABLET PO SCH (16:52)
[2018-10-25] MEDS: AMLODIPINE 5 MG TABLET PO SCH (16:52)
[2018-10-25 17:25] LABS: THYROID STIMULATING HORMONE 2.828 mIU/mL (0.358-3.740)
[2018-10-25 20:11] VITALS: BP 144/68
--- NOTE | 2018-10-25 20:19 | NUR ---
new patient admitted for closed fracture of the left inferior pubic ramus. aaox4. OOB with walker to BR with minimal assist. Voiding well. No acute distress noted. VSS. denies any pain at this time. will monitor patient. fall precautions maintained. siderails up for safety. call stack within reach.
[2018-10-25] MEDS: TRAMADOL HCL 50 MG TABLET PO PRN (22:32)
[2018-10-26 05:39] VITALS: BP 136/58
[2018-10-26] MEDS: LEVOTHYROXINE SODIUM 25 MCG TABLET PO SCH (06:29)
[2018-10-26] MEDS: TRAMADOL HCL 50 MG TABLET PO PRN (06:31)
[2018-10-26] MEDS: MEMANTINE HCL 10 MG TABLET PO SCH (09:00)
[2018-10-26] MEDS: CELECOXIB 100 MG CAPSULE PO SCH (09:00)
[2018-10-26] MEDS: AMLODIPINE 5 MG TABLET PO SCH (09:40)
[2018-10-26 10:37] VITALS: BP 140/56
--- NOTE | 2018-10-26 19:35 | NUR ---
Patient received in bed, resting with eyes closed. Responsive to verbal and tactile stimuli. Alert and oriented x 3-4. C/O pain in legs upon assessment. Will medicate. Assisted with night time ADLs. Side rails up bilaterally for safety. Call light and frequently used items within reach. Will continue to monitor.
[2018-10-26 19:51] VITALS: BP 136/68
[2018-10-26] MEDS: ACETAMINOPHEN ES 500 MG TABLET PO PRN (20:08)
[2018-10-27 06:06] VITALS: BP 158/68
[2018-10-27] MEDS: ACETAMINOPHEN ES 500 MG TABLET PO PRN ×2 (06:14→19:29)
[2018-10-27] MEDS: LEVOTHYROXINE SODIUM 25 MCG TABLET PO SCH (06:14)
[2018-10-27] MEDS: MEMANTINE HCL 10 MG TABLET PO SCH (09:08)
[2018-10-27] MEDS: CELECOXIB 100 MG CAPSULE PO SCH (09:09)
[2018-10-27] MEDS: AMLODIPINE 5 MG TABLET PO SCH (09:09)
[2018-10-27 11:32] VITALS: BP 142/68
--- NOTE | 2018-10-27 19:25 | NUR ---
Patient received in bed watching TV. Responsive to verbal and tactile stimuli. Alert and oriented x 3-4. C/O pain in legs upon assessment. Will medicate. Assisted with night time ADL's. Side rails up bilaterally for safety. Call light and frequently used items within reach. Will continue to monitor.
[2018-10-27 19:53] VITALS: BP 151/68
[2018-10-27] MEDS ORDERED: TEMAZEPAM 7.5 MG CAPSULE PO ONE (21:00)
--- NOTE | 2018-10-27 21:10 | NUR ---
Patient restless and yelling at both this nurse and son on phone in [facility]. Patient does not like this facility. Feels that it is a "fpc". Patient informed that if she doesn't like the unit that much that she can tell the MD tomorrow morning. Patient request medication to help her sleep. grout worker MD Hoyt called. Restoril 7.5 MG orders. Will continue to monitor.
[2018-10-28 06:03] VITALS: BP 95/68
[2018-10-28] MEDS: ACETAMINOPHEN ES 500 MG TABLET PO PRN ×2 (06:21→14:09)
[2018-10-28] MEDS: LEVOTHYROXINE SODIUM 25 MCG TABLET PO SCH (06:21)
[2018-10-28 08:50] VITALS: BP 144/63
[2018-10-28] MEDS: AMLODIPINE 5 MG TABLET PO SCH (08:50)
[2018-10-28] MEDS: MEMANTINE HCL 10 MG TABLET PO SCH (08:51)
[2018-10-28] MEDS: CELECOXIB 100 MG CAPSULE PO SCH (08:51)
[2018-10-28] MEDS: HYDROCODONE/APAP 5-325MG TABLET PO PRN ×2 (10:49→20:59)
--- NOTE | 2018-10-28 10:59 | NUR ---
INDIVIDUALIZED OVERALL PLAN OF CARE
--- NOTE | 2018-10-28 14:11 | NUR ---
Patient complained of headache and asked for Tylenol. Tylenol given as ordered.
[2018-10-28 16:13] VITALS: BP 120/61
--- NOTE | 2018-10-28 19:25 | NUR ---
Patient in bed watching TV. Responsive to verbal and tactile stimuli. Alert and oriented x 3-4. C/O pain in hip upon assessment. Will medicate. Assisted with night time ADL's. Side rails up bilaterally for safety. Call light and frequently used items within reach. Will continue to monitor.
[2018-10-28 20:42] VITALS: BP 145/70
[2018-10-29] MEDS: LEVOTHYROXINE SODIUM 25 MCG TABLET PO SCH (06:14)
[2018-10-29 06:16] VITALS: BP 142/56
[2018-10-29 08:28] VITALS: BP 141/66
[2018-10-29] MEDS: AMLODIPINE 5 MG TABLET PO SCH (08:28)
[2018-10-29] MEDS: CELECOXIB 100 MG CAPSULE PO SCH (08:28)
[2018-10-29] MEDS: HYDROCODONE/APAP 5-325MG TABLET PO PRN ×3 (08:29→20:41)
[2018-10-29] MEDS: MEMANTINE HCL 10 MG TABLET PO SCH (08:29)
[2018-10-29] MEDS ORDERED: TEMAZEPAM 15 MG CAPSULE PO PRN (12:15)
[2018-10-29] MEDS: ACETAMINOPHEN ES 500 MG TABLET PO PRN (12:49)
[2018-10-29 16:46] VITALS: BP 140/60
[2018-10-29 19:40] VITALS: BP 135/54
--- NOTE | 2018-10-29 20:56 | NUR ---
Received pt in bed, appearing to be asleep but easily arousable to verbal stimuli and light touch. No acute distress noted. Primarily Farsi speaking but able to communicate basic needs in Portuguese. C/O pain on 5/10 pain scale. PRN [place] 5-325 mg PO given as ordered, tolerated well with good effect. All safety measures and fall precautions maintained. Call light and all personal belongings within reach. Will continue to monitor.
[2018-10-30] MEDS: HYDROCODONE/APAP 5-325MG TABLET PO PRN ×3 (02:20→21:00)
[2018-10-30 05:30] VITALS: BP 125/55
[2018-10-30] MEDS: LEVOTHYROXINE SODIUM 25 MCG TABLET PO SCH (06:08)
[2018-10-30] MEDS: MEMANTINE HCL 10 MG TABLET PO SCH (08:39)
[2018-10-30] MEDS: CELECOXIB 100 MG CAPSULE PO SCH (08:39)
[2018-10-30] MEDS: AMLODIPINE 5 MG TABLET PO SCH (08:47)
[2018-10-30 09:18] VITALS: BP 152/65
--- NOTE | 2018-10-30 09:52 | NUR ---
Received pt. in bed in no distress. A/OX3 able to make her needs known No new skin condition. Speaks Farsi but able to speak basic Venezuelan. Noted with elevated BP, [place] aware with NNO. BP meds effective after 1 hr, BP: 140/65. needs attended and met promptly. Safety measures in place. Call light and all frequently used items within pt. reach. Will continue to monitor accordingly.
[2018-10-30] MEDS: ACETAMINOPHEN ES 500 MG TABLET PO PRN (13:02)
[2018-10-30 16:50] VITALS: BP 116/71
--- NOTE | 2018-10-30 18:02 | NUR ---
End of shift note: No significant change during this shift. All needs attended and met promptly. Safety measures in placed. Bed in low position, brake on, side rails up x2 as an enabler. Call light and all frequently used items within pt. reach. Will endorse to next shift accordingly.
[2018-10-30] MEDS: LORAZEPAM 1 MG TABLET PO PRN (18:52)
[2018-10-30 19:46] VITALS: BP 139/64
--- NOTE | 2018-10-30 19:51 | NUR ---
received in bed alert and oriented x4. VSS BP 130/64 HR 73 Resp 18 Temp 98.1 pulse ox 95%RA needs attended. denies any pain at this time. Ambulates to the BR with standby assist. Voiding without difficulty. Fall precautions maintained. Siderails up for safety. Call stack within reach. Will monitor patient.
[2018-10-31 05:39] VITALS: BP 138/62
[2018-10-31] MEDS: LEVOTHYROXINE SODIUM 25 MCG TABLET PO SCH (06:26)
[2018-10-31] MEDS: MEMANTINE HCL 10 MG TABLET PO SCH (08:25)
[2018-10-31] MEDS: HYDROCODONE/APAP 5-325MG TABLET PO PRN ×2 (08:25→20:50)
[2018-10-31] MEDS: AMLODIPINE 5 MG TABLET PO SCH (08:25)
[2018-10-31] MEDS: CELECOXIB 100 MG CAPSULE PO SCH (08:25)
[2018-10-31] MEDS: METHYL SALICYLATE/MENTHOL CREAM 28 GM TUBE TOP PRN ×2 (08:29→20:51)
[2018-10-31] MEDS: Z GUARD REMEDY PASTE 57 GM TUBE TOP PRN (08:32)
[2018-10-31 08:41] VITALS: BP 150/68
--- NOTE | 2018-10-31 08:47 | NUR ---
Received pt. in bed in no distress. A/OX3 able to make her needs known No new skin condition. All needs attended and met promptly. All due medications given as ordered and tolerated well. Ambulatory with FWW + stand by assist. Safety measures in place. Call light and all frequently used items within pt. reach. Will continue to monitor accordingly.
[2018-10-31 16:41] VITALS: BP 139/78
[2018-10-31 19:45] VITALS: BP 139/45
--- NOTE | 2018-10-31 19:45 | NUR ---
Patient received in bed, AAO x3. Able to make needs known. No acute distress or SOB noted. On room air. Complained of low back pain, rated 6/10. Physical assessment done. Safety measures observed. Fall precaution maintained. Bed in low position, side rails up x2 for safety, brake and alarm on. call light and personal belongings within reach. Continue to monitor.
[2018-11-01] MEDS: ACETAMINOPHEN ES 500 MG TABLET PO PRN ×2 (00:49→11:02)
[2018-11-01] MEDS: LEVOTHYROXINE SODIUM 25 MCG TABLET PO SCH (06:02)
[2018-11-01 06:40] VITALS: BP 135/51
--- NOTE | 2018-11-01 06:49 | NUR ---
End of the shift note Patient was stable throughout the shift and has a good sleep last night. No acute distress or SOB noted. On room air. Complained of lower back pain rated 6/10 in numeric scale. Pain assessed and reassessed after pain medication. All due medication given as ordered. Checked Vital Signs. Physical assessment done. Assisted her to the bathroom as needed. Safety measures observed. Fall precaution maintained. All needs attended promptly. Bed in low position, side rails up x2 for safety, brake and alarm on. call light and personal belongings within reach. Continue to monitor and will endorse to the day shift nurse accordingly.
--- NOTE | 2018-11-01 08:30 | NUR ---
Received patient, awake, alert x4, resting in bed. Not in any form of distress With pain over lower back/ sacral area rated as 7/10.
[2018-11-01] MEDS: CELECOXIB 100 MG CAPSULE PO SCH (08:41)
[2018-11-01] MEDS: MEMANTINE HCL 10 MG TABLET PO SCH (08:41)
[2018-11-01] MEDS: AMLODIPINE 5 MG TABLET PO SCH (08:41)
[2018-11-01] MEDS: HYDROCODONE/APAP 5-325MG TABLET PO PRN (08:41)
[2018-11-01] MEDS: METHYL SALICYLATE/MENTHOL CREAM 28 GM TUBE TOP PRN (08:41)
[2018-11-01 09:00] VITALS: BP 133/65
--- NOTE | 2018-11-01 09:00 | NUR ---
Up with occupational therapy, tolerating well. Pain medication [place] 5-235 given prior to therapy. Gaudencio-carrillo ointment given as well. Able to ambulate well with front wheel walker to rehab gym.
--- NOTE | 2018-11-01 13:03 | NUR ---
INTERDISCIPLINARY TEAM CONFERENCE
[2018-11-01 16:53] VITALS: BP 133/54
--- NOTE | 2018-11-01 19:35 | NUR ---
Patient received in bed, AAO x3. Able to make needs known. No acute distress or SOB noted. On room air. Complained of headache, rated 3/10. Physical assessment done. Safety measures observed. Fall precaution maintained. Bed in low position, side rails up x2 for safety, brake and alarm on. call light and personal belongings within reach. Continue to monitor.
[2018-11-01 19:40] VITALS: BP 135/46
[2018-11-02] MEDS: ACETAMINOPHEN ES 500 MG TABLET PO PRN ×3 (01:20→21:14)
[2018-11-02] MEDS: METHYL SALICYLATE/MENTHOL CREAM 28 GM TUBE TOP PRN ×3 (01:25→21:34)
[2018-11-02 05:41] VITALS: BP 147/50
--- NOTE | 2018-11-02 05:43 | NUR ---
End of the shift note Patient was stable throughout the shift and has a good sleep last night. No acute distress or SOB noted. On room air. Complained of headache that improved with Tylenol 1000 mg. All due medication given as ordered. Applied Gaudencio-carrillo ultra cream on her lower back. Checked Vital Signs. Physical assessment done. Assisted her to the bathroom as needed. Safety measures observed. Fall precaution maintained. All needs attended promptly. Bed in low position, side rails up x2 for safety, brake and alarm on. call light and personal belongings within reach. Continue to monitor and will endorse to the day shift nurse accordingly.
[2018-11-02] MEDS: LEVOTHYROXINE SODIUM 25 MCG TABLET PO SCH (06:13)
--- NOTE | 2018-11-02 08:20 | NUR ---
Received patient, awake, alert x3, resting in bed. With tolerable pain over coccyx area, not in any form of distress. Assisted to sit for breakfast, morning care done.
[2018-11-02] MEDS: CELECOXIB 100 MG CAPSULE PO SCH (08:47)
[2018-11-02] MEDS: MEMANTINE HCL 10 MG TABLET PO SCH (08:47)
[2018-11-02] MEDS: AMLODIPINE 5 MG TABLET PO SCH (08:47)
[2018-11-02] MEDS ORDERED: OXYCODONE/APAP 5-325 MG TABLET PO PRN (09:00)
[2018-11-02 09:56] VITALS: BP 126/53
--- NOTE | 2018-11-02 09:58 | NUR ---
Up with occupational therapy, tolerating well with tolerable pain on coccyx area. Applied topical cream. Able to ambulate with front wheel walker. Seen and examined by Carter/GRAIN INSPECTOR, no new orders at this time.
[2018-11-02 16:07] VITALS: BP 128/53
--- NOTE | 2018-11-02 16:11 | NUR ---
Showered with minimal assist, tolerated well. With tolerable pain levels.
--- NOTE | 2018-11-02 18:24 | NUR ---
Offered Milk of Magnesia for constipation but patient refused said she already had a bowel movement. Discussed risks and benefits bu patient refused.
[2018-11-02 19:40] VITALS: BP 129/46
[2018-11-02 19:45] VITALS: BP 129/46
--- NOTE | 2018-11-03 05:46 | NUR ---
End of the shift note Patient was stable throughout the shift and has a good sleep last night. No acute distress or SOB noted. On room air. Complained of lower back pain rated 3/10 in numeric scale, Tylenol ES 1000 mg administered, Gaudencio carrillo ultra cream applied, both effective. All due medication given as ordered. Vital Signs checked. Physical assessment done. Assisted her to the bathroom as needed. Safety measures observed. Fall precaution maintained. All needs attended promptly. Bed in low position, side rails up x2 for safety, brake and alarm on. call light and personal belongings within reach. Continue to monitor and will endorse to the day shift nurse accordingly.
[2018-11-03] MEDS: LEVOTHYROXINE SODIUM 25 MCG TABLET PO SCH (06:16)
[2018-11-03 06:26] VITALS: BP 145/70
[2018-11-03] MEDS: AMLODIPINE 5 MG TABLET PO SCH (08:19)
[2018-11-03] MEDS: CELECOXIB 100 MG CAPSULE PO SCH (08:19)
[2018-11-03] MEDS: ACETAMINOPHEN ES 500 MG TABLET PO PRN ×2 (08:19→20:32)
[2018-11-03] MEDS: MEMANTINE HCL 10 MG TABLET PO SCH (08:19)
[2018-11-03] MEDS: Z GUARD REMEDY PASTE 57 GM TUBE TOP PRN (08:20)
[2018-11-03] MEDS: METHYL SALICYLATE/MENTHOL CREAM 28 GM TUBE TOP PRN (08:20)
--- NOTE | 2018-11-03 08:30 | NUR ---
Received patient awake, alert x3 resting in bed. Assisted to sit in bed. With pain over coccyx area rated as 6-7/10. Not in any form of distress. Morning care done.
[2018-11-03 09:05] VITALS: BP 144/66
--- NOTE | 2018-11-03 10:12 | NUR ---
Up with physical therapy, tolerating well. Tylenol 1000 mg given prior to therapy, with tolerable pain levels.
[2018-11-03 16:00] VITALS: BP 147/64
[2018-11-03 20:00] VITALS: BP 148/77
--- NOTE | 2018-11-03 21:31 | NUR ---
Received pt resting in bed. AAO x3. Farsi speaking, able to make needs known. No acute distress noted. C/o pain on the lower back, Tylenol given as ordered and as per pt request. Safety measures maintained. Call light and personal belongings within reach. Will continue to monitor.
[2018-11-04] MEDS: LEVOTHYROXINE SODIUM 25 MCG TABLET PO SCH (06:26)
[2018-11-04 06:30] VITALS: BP 115/62
[2018-11-04] MEDS: AMLODIPINE 5 MG TABLET PO SCH (08:11)
[2018-11-04] MEDS: CELECOXIB 100 MG CAPSULE PO SCH (08:13)
[2018-11-04] MEDS: MEMANTINE HCL 10 MG TABLET PO SCH (08:13)
--- NOTE | 2018-11-04 08:17 | NUR ---
patient is alert, oriented x4, verbally responsive, no sob, resp even nonlabored,skin warm and dry to touch, patient ambulated to bathroom, complained pain to left pelvic area /, pain medication percocet given per patient request, instructed patient to call for assist to bathroom, might feel sleepy after pain medication, patient verbalized understanding, frequent monitoring continue to safety
--- NOTE | 2018-11-04 09:35 | NUR ---
patient noted with talking to himself, making gestures, pacing, RETAIL BEAUTY SPECIALIST Evangelina made aware, with marta to do psych consult. Addendum: 11/04/18 at 1034 by CAROL CHAVEZ RN RN DISREGARD ABOVE NOTED, WRONG ENTRY
[2018-11-04 10:00] VITALS: BP 128/54
--- NOTE | 2018-11-04 10:34 | NUR ---
PATIENT IS ALERT, ORIENTED X4, FARSI SPEAKING, NO SOB,RESP EVEN NON LABORED,SKIN WARM AND DRY TO TOUCH, PAIN IS MANAGED WITH PAIN MEDICATIONS AND WITH NONPHARMACOLOGICAL INTERVENTIONS, PARTICIPATING WITH PT AND OT SERVICES, TOLERATING WELL, PATIENT TOLERATED SHOWER WELL.
[2018-11-04 17:00] VITALS: BP 140/58
[2018-11-04] MEDS ORDERED: ONDANSETRON ODT 4 MG TAB.RAPDIS SL PRN (17:30)
--- NOTE | 2018-11-04 17:30 | NUR ---
PATIENT COMPLAINED NAUSEATED AND VOMITED X2, VITALS WNL, PATIENT IS ALERT, ORIENTED X4, VERBALLY RESPONSIVE, NO SOB, RESP EVEN NONLABORED,SKIN WARM AND DRY TO TOUCH, USER INTERFACE ARTIST JOSUE MADE AREAR ZOFRAN ADMINISTERED ORDERED, CONTINUE TO MONITOR
--- NOTE | 2018-11-04 18:53 | NUR ---
Reevaluated for nausea and vomiting, patient stated relief from nausea and vomiting, ate some soup and tolerated well, bedside, no acute distress noted at this time.
[2018-11-04 19:40] VITALS: BP 118/66
--- NOTE | 2018-11-04 19:40 | NUR ---
Patient received in bed, AAO x3. Able to make needs known. No acute distress or SOB noted. On room air. Complained of low back pain, rated 3/10. Physical assessment done. Safety measures observed. Fall precaution maintained. Bed in low position, side rails up x2 for safety, brake and alarm on. call light and personal belongings within reach. Continue to monitor.
[2018-11-04] MEDS: METHYL SALICYLATE/MENTHOL CREAM 28 GM TUBE TOP PRN (23:41)
[2018-11-04] MEDS: ACETAMINOPHEN ES 500 MG TABLET PO PRN (23:41)
[2018-11-05] MEDS: LEVOTHYROXINE SODIUM 25 MCG TABLET PO SCH (06:23)
[2018-11-05 07:02] VITALS: BP 135/66
--- NOTE | 2018-11-05 08:10 | NUR ---
Received patient, awake, alert x3, resting at bed. Not in any form of distress, with tolerable pain over coccyx area. Morning care done.
[2018-11-05] MEDS: CELECOXIB 100 MG CAPSULE PO SCH (09:17)
[2018-11-05] MEDS: MEMANTINE HCL 10 MG TABLET PO SCH (09:17)
[2018-11-05] MEDS: AMLODIPINE 5 MG TABLET PO SCH (09:18)
[2018-11-05] MEDS: METHYL SALICYLATE/MENTHOL CREAM 28 GM TUBE TOP PRN (09:29)
[2018-11-05 09:48] VITALS: BP 144/69
--- NOTE | 2018-11-05 10:07 | NUR ---
Up with physical therapy, tolerating well. With tolerable pain over coccyx area. Able to ambulate well with front wheel walker.
[2018-11-05] MEDS: ACETAMINOPHEN ES 500 MG TABLET PO PRN ×2 (10:38→20:44)
[2018-11-05 16:38] VITALS: BP 134/61
[2018-11-05 19:49] VITALS: BP 131/53
--- NOTE | 2018-11-05 20:59 | NUR ---
Received pt resting in bed and watching tv. AAO x3. Farsi speaking, able to make needs known. No acute distress noted. C/o 4/10 pain on the coccyx area. Tylenol PRN given. Safety measures maintained. Call light and personal belongings within reach. Will continue to monitor.
[2018-11-06 05:30] VITALS: BP 127/61
[2018-11-06] MEDS: LEVOTHYROXINE SODIUM 25 MCG TABLET PO SCH (06:21)
--- NOTE | 2018-11-06 08:15 | NUR ---
Received patient resting in bed awake, alert x3. Not in any form of distress. With tolerable pain over coccyx area, topical analgesic given . Morning care done.
[2018-11-06 09:00] VITALS: BP 143/63
[2018-11-06] MEDS: CELECOXIB 100 MG CAPSULE PO SCH (09:10)
[2018-11-06] MEDS: MEMANTINE HCL 10 MG TABLET PO SCH (09:10)
[2018-11-06] MEDS: METHYL SALICYLATE/MENTHOL CREAM 28 GM TUBE TOP PRN (09:12)
[2018-11-06] MEDS: AMLODIPINE 5 MG TABLET PO SCH (09:12)
[2018-11-06] MEDS: ACETAMINOPHEN ES 500 MG TABLET PO PRN ×2 (09:14→20:14)
--- NOTE | 2018-11-06 10:32 | NUR ---
Up with occupational therapy, with pain over coccyx area. PRN Tylenol 1000 mg given prior to therapy, will continue to monitor Patient able to ambulate well with minimum assist with front wheel walker.
[2018-11-06] MEDS ORDERED: IBUPROFEN 400 MG TABLET PO PRN (14:45)
--- NOTE | 2018-11-06 16:00 | NUR ---
Showered with minimum assistance, tolerated well. Still with pain over coccyx area.
[2018-11-06 16:15] VITALS: BP 118/52
--- NOTE | 2018-11-06 19:40 | NUR ---
Patient received in bed, AAO x4. Able to make needs known. No acute distress or SOB noted. On room air. Complained of low back pain, rated 4/10. Physical assessment done. Safety measures observed. Fall precaution maintained. Bed in low position, side rails up x2 for safety, brake and alarm on. call light and personal belongings within reach. Continue to monitor.
[2018-11-06] MEDS: METHYL SALICYLATE/MENTHOL CREAM 28 GM TUBE TOP SCH (20:15)
[2018-11-06 20:37] VITALS: BP 132/60
[2018-11-07] MEDS: LEVOTHYROXINE SODIUM 25 MCG TABLET PO SCH (06:13)
[2018-11-07 07:25] VITALS: BP 138/53
[2018-11-07 07:58] VITALS: BP 145/54
[2018-11-07] MEDS: ACETAMINOPHEN ES 500 MG TABLET PO PRN ×2 (08:41→20:09)
[2018-11-07] MEDS: MEMANTINE HCL 10 MG TABLET PO SCH (08:42)
[2018-11-07] MEDS: CELECOXIB 100 MG CAPSULE PO SCH (08:42)
[2018-11-07] MEDS: AMLODIPINE 5 MG TABLET PO SCH (08:42)
[2018-11-07] MEDS: METHYL SALICYLATE/MENTHOL CREAM 28 GM TUBE TOP SCH ×4 (08:43→20:08)
--- NOTE | 2018-11-07 09:52 | NUR ---
Patient noted resting in bed, complaints of lower back pain, PRN Tylenol given and Bengay cream applied at this time, no signs of distress noted, bed lcoked an din lowest position, all needs met at this time
[2018-11-07] MEDS: LORAZEPAM 1 MG TABLET PO PRN (13:53)
[2018-11-07 16:06] VITALS: BP 151/78
--- NOTE | 2018-11-07 19:24 | NUR ---
no changes this shift, no signs of acute distress this shift
--- NOTE | 2018-11-07 19:35 | NUR ---
Patient received in bed, AAO x4. Able to make needs known. No acute distress or SOB noted. On room air. Complained of low back pain, rated 3/10. Physical assessment done. Safety measures observed. Fall precaution maintained. Bed in low position, side rails up x2 for safety, brake and alarm on. call light and personal belongings within reach. Continue to monitor.
[2018-11-07 19:40] VITALS: BP 139/59
[2018-11-08] MEDS: LEVOTHYROXINE SODIUM 25 MCG TABLET PO SCH (06:26)
--- NOTE | 2018-11-08 06:35 | NUR ---
Upon checking VS, BP was high: 169/70, HR:70. No complain of other symptoms (no chest pain, headache, or dizziness). Rechecked BP again: 162/63. Patient has scheduled BP medication at 0900. Contacted epic on-call doctor for BP PRN medication. No response after 30 minutes. Rechecked BP again: 145/69. Continue to monitor and will endorse to oncoming nurse accordingly.
[2018-11-08] MEDS: MEMANTINE HCL 10 MG TABLET PO SCH (08:23)
[2018-11-08] MEDS: CELECOXIB 100 MG CAPSULE PO SCH (08:23)
[2018-11-08] MEDS: AMLODIPINE 5 MG TABLET PO SCH (08:24)
[2018-11-08] MEDS: METHYL SALICYLATE/MENTHOL CREAM 28 GM TUBE TOP SCH ×3 (08:36→16:26)
[2018-11-08 10:00] VITALS: BP 143/65
--- NOTE | 2018-11-08 18:28 | NUR ---
Patient discharge to home with home health agency around 6pm in stable condition with son via private car. medication prescription given. medical instruction and ff up given. verbalize understanding.MD Prasad and [employer] Jamal aware.thankful for care given. medication list fax to [facility].
== END 2018-11-08 18:00 | disposition home health service (06) | DRG 561 ==
LOC: SA1 12:48
PROVIDERS: ADMIT Physical Medicine & Rehabilitation Pain Medicine; ATTEND Physical Medicine & Rehabilitation Pain Medicine
DX: S32.592D Other specified fracture of left pubis, subsequent encounter for fracture with routine healing (principal); W01.0XXD Fall on same level from slipping, tripping and stumbling without subsequent striking against object, subsequent encounter; E03.9 Hypothyroidism, unspecified; E78.5 Hyperlipidemia, unspecified; M54.5 Low back pain; M85.80 Other specified disorders of bone density and structure, unspecified site; F03.90 Unspecified dementia, unspecified severity, without behavioral disturbance, psychotic disturbance, mood disturbance, and anxiety; I10 Essential (primary) hypertension; I25.10 Atherosclerotic heart disease of native coronary artery without angina pectoris; M19.90 Unspecified osteoarthritis, unspecified site; M81.0 Age-related osteoporosis without current pathological fracture; M48.061 Spinal stenosis, lumbar region without neurogenic claudication; R26.9 Unspecified abnormalities of gait and mobility
CPT/HCPCS: 36415; 83735; 84443; 85025; 92523; 92526; 92610; 97110; 97112; 97116; 97165; 97530; 97535; A9150; Q0162